=== PATIENT | male | born 1955 | race Caucasian/White ===

== ENCOUNTER 2021-01-16 17:05 | Emergency (ER) | payer MEDICARE, MEDICAID, SELFPAY ==
--- NOTE | ~2021-01-16 | CT_ITS ---
EXAMINATION: CT HEAD WITHOUT CONTRAST CT CERVICAL SPINE WITHOUT CONTRAST CLINICAL INFORMATION: Fall. EtOH. COMPARISON: None. TECHNIQUE: Imaging was performed from the skull base to vertex without intravenous administration of contrast. In addition, helical noncontrast CT imaging was acquired through the cervical spine and source images were reviewed along with axial reconstructions and sagittal and coronal MPRs. [This CT examination was performed using dose optimization techniques as appropriate, variously including the following: *Automated exposure control *Adjustment of mA and/or kV according to patient size (this includes techniques or standardized protocols for targeted exams where dose is matched to indication/reason for exam; i.e. extremities or head) *Use of iterative reconstruction technique] DLP: 1097 mGy-cm FINDINGS: HEAD: No intracranial mass, hemorrhage, or midline shift is visualized. There is generalized global volume loss. There is moderate prominence of the ventricles and the sulci and hypodensity of the periventricular white matter due to chronic small vessel ischemic disease. There are vascular calcifications of the internal carotid arteries bilaterally. No extra-axial collections are identified. Ethmoid sinuses are significantly opacified. There is mucosal lobular thickening in the right maxillary greater than left maxillary as well as the sphenoid and frontal sinuses bilateral. The mastoid air cells and middle ear cavities are normally aerated. CERVICAL SPINE: There is no evidence of acute cervical spine fracture. Vertebral bodies remain normal in height. Cervical vertebrae have normal alignment. There is multilevel degenerative spondylosis of the cervical spine with disc height narrowing and endplate spurs and facet joint arthrosis No pre- or paravertebral soft tissue abnormality is identified. Limited assessment of the lung apices is unremarkable. CT/CT cervical spine wo con IMPRESSION: 1. No acute intracranial pathology. 2. No CT evidence of acute cervical spine fracture or traumatic subluxation
[2021-01-16 17:15] VITALS: BP 106/68; PULSE 87; RESP 17; TEMP 36.5; O2SAT 94; O2SAT 96; BMI 25.0
--- NOTE | 2021-01-16 17:56 | ED.ALCOHOL ---
HPI - Alcohol General Chief Complaint: ETOH/Substance Use Stated Complaint: od Time Seen by Provider: 01/16/21 18:43 Source: patient Mode of arrival: ambulatory Limitations: no limitations History of Present Illness HPI narrative: Patient brought to the ED due to drug use. Patient was found sleeping on the floor and responded to 4 mg of Narcan. Patient admits to drinking alcohol and using heroin. Patient does not want detox. Patient is homeless. Related Data Allergies Allergy/AdvReac Type Severity Reaction Status Date / Time No Known Allergies Allergy Unverified 04/21/20 19:48 [No Known Allergies*] Review of Systems Review of Systems: Yes all other systems are reviewed and are negative Constitutional: Constitutional: Reports as per HPI and Reports no additional constitutional complaints Eyes: Eyes: Reports as per HPI and Reports no additional eye complaints ENT: Reports system reviewed and no additional complaints, except as documented and Reports as per HPI Cardiovascular: Cardiovascular: Reports as per HPI and Reports no additional cardiovascular complaints Respiratory: Respiratory: Reports as per HPI and Reports no additional respiratory complaints Gastrointestinal: Gastrointestinal: Reports as per HPI and Reports no additional gastrointestinal complaints Genitourinary: Genitourinary: Reports no additional male genitourinary complaints and Reports as per HPI Musculoskeletal: Musculoskeletal: Reports no additional musculoskeletal complaints and Reports as per HPI Neurologic: Reports system reviewed and no additional complaints, except as documented and Reports as per HPI Psychiatric: Psychiatric: Reports no additional psychiatric complaints and Reports as per HPI [facility] Social History Social History Advance Directives: No Advance Directives Information Provided: No Physical Exam Vital Signs: Vital Signs: Last Vital Signs Temp 97.7 F 01/16/21 17:15 Pulse 87 01/16/21 17:15 Resp 17 01/16/21 17:15 BP 106/68 01/16/21 17:15 Pulse Ox 94 01/16/21 17:15 Body Mass Index 25.0 Const: General: cooperative, healthy appearing, comfortable and no acute distress Orientation/consciousness: patient oriented x3 HENMT: Head: Yes normal to inspection, Yes No palpable skull fracture present, Yes normocephalic and Yes abrasion (Frontal forehead) Eyes: General: appearance normal, both eyes and all related structures Neck: Neck: Yes normal visual inspection, Yes full ROM, Yes no lymphadenopathy, Yes no meningeal signs, Yes trachea midline, Yes supple and No tender Chest: Chest palpation & inspection: normal inspection of the chest and normal palpation of entire chest wall Resp: Effort & Inspection: normal respiratory effort and able to speak in complete sentences Auscultation: clear to auscultation bilaterally Cardio: Jugular venous distension: no JVD Heart sounds: S1 normal heart sound present and S2 normal heart sound present GI: Inspection: Yes normal to inspection and No abdominal wall ecchymosis Palpation (GI): Soft to palpation, not firm, nontender, no guarding and not rigid : General: No CVA tenderness and Yes no CVA tenderness Back/Spine/Pelvis: Back: no CVA tenderness, No CVA tenderness and No back tenderness Skin: General skin exam: no rashes or lesions noted and elasticity normal Neuro: General: patient oriented x3, no meningeal signs and CN's II-XI intact bilaterally Cranial nerves: Yes CN's II-XII intact bilaterally Extrem: General: Yes normal to inspection and Yes full ROM Psych: Appearance: grossly normal, well kempt and not disheveled Course Course Course Narrative: Patient will be allowed to sober up. Patient has abrasion on left frontal forehead found on the ground will do head CT C-spine although no other signs of trauma. Patient drinking Reevaluation(s) Reevaluation #1: Images came back negative for head fracture or neck fracture. Negative for brain bleed. Patient does not want detox. Patient alert oriented x3 ready for discharge Time: 19:41 MDM - Alcohol MDM Narrative Medical decision making narrative: Poly substance abuse. Alcohol abuse Discharge Plan Discharge Clinical Impression: Alcohol abuse, Polysubstance abuse Patient Disposition: Home, Self-Care Instructions: Abuse of Alcohol (ED), Polysubstance Abuse (ED) Additional Instructions: Return to the ED for any suicidal/homicidal ideation, any physical complaints, auditory/visual hallucinations, any physical complaints, or any other concerning symptoms. Please follow-up with the PCP Interventions: ED Discharge Assessment Last Done: 01/16/21 19:58 Discharge Date/Time: 01/16/21 20:00 Print Language: Pakistani
--- NOTE | 2021-01-16 18:04 | MHC.RECOVSUP ---
Recovery Support note: Patient presented after an accidental overdose. Patient reports alcohol and heroin use. Patient declined detox at this time. Patient met with Cda Teacher who provided resources and support. If patient changes his mind about detox, [employer]da Teacher available to assist.
--- NOTE | 2021-01-16 18:35 | PC.NURSE ---
Abrasion to pt's chest from sternal rub in the felid. Bacitracin applied to his chest.
--- NOTE | 2021-01-16 18:36 | PC.NURSE ---
Pt is cooperative, alert, and oriented and CT scans obtained.
[2021-01-16] MEDS: Acetaminophen 325 MG TABLET 650 MG PO (18:49)
--- NOTE | 2021-01-16 18:49 | PC.NURSE ---
pt medicated for headache
--- NOTE | 2021-01-16 19:15 | MHC.RECOVSUP ---
we was able to talk to the patien regarding to what happend to him and he stated that after the over doses he wants go home . coach builder gave support to the patient and engage him hope for [facility]. coach builder ask the patient if he wanted to go to the Detox but he did not wanted .
--- NOTE | 2021-01-16 19:56 | PC.NURSE ---
FIRST ENCOUNTER WITH PATIENT FOR DC PURPOSES. PT AWAKE, ALERT, SITTING UP IN CHAIR TOLERATING PO. DENIES SI/HI. CT RESULTS GIVEN TO PATIENT BY MD. PLAN IS FOR DC HOME. PT CALLED SISTER FOR RIDE AND SISTER IS HERE TO BRING HIM HOME. PT AMBULATORY, GAIT STEADY. NEUROS INTACT. INTERACTIONS APPROPRIATE WITH STAFF.
== END 2021-01-16 20:00 | disposition home or self-care (01) ==
PROVIDERS: Emergency Provider Internal Medicine
DX: F19.10 Other psychoactive substance abuse, uncomplicated (principal); F10.10 Alcohol abuse, uncomplicated; Y90.9 Presence of alcohol in blood, level not specified; S00.81XA Abrasion of other part of head, initial encounter; W19.XXXA Unspecified fall, initial encounter; Y93.9 Activity, unspecified; Y92.9 Unspecified place or not applicable; Y99.9 Unspecified external cause status
CPT/HCPCS: 70450; 72125; 99283; 99284